=== PATIENT | female | born 1970 | race Caucasian/White ===

== ENCOUNTER 2021-09-04 08:45 | Emergency (ER) | payer BC, SELFPAY ==
--- NOTE | ~2021-09-04 | XR_ITS ---
EXAMINATION: XR HAND, RIGHT CLINICAL INFORMATION: Dog bite COMPARISON: None TECHNIQUE: PA, lateral, and oblique views of the right hand. FINDINGS: Bone alignment is normal. No fracture or dislocation is seen. Joint spaces are normal. There is a dressing overlying soft tissues adjacent to the first metacarpal bone. Soft tissues are otherwise unremarkable. XR/XR hand RT 2V IMPRESSION: No fracture seen.
[2021-09-04 09:58] VITALS: BP 107/44; PULSE 85; RESP 18; TEMP 36.6; O2SAT 98; BMI 24.7
--- NOTE | 2021-09-04 10:48 | ED_ITS ---
HPI - Animal Bite General Chief Complaint: Animal Bite Stated Complaint: Dog bite R hand Time Seen by Provider: 09/04/21 10:07 Source: patient Mode of arrival: ambulatory Limitations: no limitations History of Present Illness HPI narrative: 50-year-old female presents to the ER for evaluation of dog bite to her right hand. She was trying to break up a dog fight between her nieces pit bulls. She and her niece put their hands in the dog's mouth to try to break them up and they both sustained injuries to their hands and wrists. The patient reports significant pain to all of her digits of her right hand and is unable to move them at this point. She presents with her right hand wrapped up tight in gauze. She is right hand dominant. She is UTD on her TDAP. MD complaint: animal bite Onset (ago): minute(s) Animal: dog Description of animal: household pet Mechanism: bite and scratch Location - Extremities: right: hand Pain description: sharp and constant Severity scale (1-10): 7 Context: animals fighting Associated symptoms: numbness and headache Treatments prior to arrival: wound dressing(s) Related Data Patient tetanus UTD: Yes Previous Rx's Medication Instructions Recorded amoxicillin 875 mg-potassium 1 tab PO BID #20 tabs 09/04/21 clavulanate 125 mg tablet ibuprofen 600 mg tablet 600 mg PO Q8H PRN pain #20 tabs 09/04/21 Allergies Allergy/AdvReac Type Severity Reaction Status Date / Time Unable to Assess Allergy Unverified 09/04/21 11:43 Review of Systems Review of Systems: Constitutional: No Fever, No Chills ENT/Mouth: No sore throat, No Rhinorrhea, No Swallowing Difficulty Cardiovascular: No Chest Pain, No SOB, No Orthopnea, No Edema Respiratory: No Cough, No Sputum, No Wheezing, No dyspnea Gastrointestinal: + Nausea, No Vomiting, No Diarrhea, No abdominal Pain Musculoskeletal: + joint pain, No Myalgias Skin: + Skin Lesions, No rash Neuro: + Weakness, No Numbness, + Dizziness, + Headache Psych: + Anxiety/Panic, No Depression Heme/Lymph: + Bruising, No Lymphadenopathy PMFSH Social History Social History Advance Directives: Yes Advance Directives Information Provided: No Advance Directives on File: No Physical Exam ED Vital Signs: Vital Signs - 24 hr 07/11/22 09:58 Temperature 98 F Pulse Rate 85 Respiratory Rate 18 Blood Pressure 107/44 L Pulse Oximetry 98 Oxygen Delivery Method Room Air BMI result Body Mass Index 24.7 Appearance: Alert. Oriented X3. Anxious, pacing HEENT: normal inspection CVS: Normal heart rate and rhythm. Pulses normal. Respiratory: No respiratory distress. Skin: Skin warm and dry. Normal skin color. Normal skin turgor. No rashes. Extremities: dorsal aspect of the right hand with multiple tiny superficial abrasions and scrapes with a 3cm deep laceration to the hypothenar area. normal ROM of all digits including adduction and abduction of the fingers. decreased sensation of the 1st digit and 2nd digit on the dorsal side. 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 cap refill <3 sec, 2+ radial pulse Neuro: Oriented X 3. No motor deficit. No sensory deficit. Course Course Course Narrative: 50 yo female presents to the ER with right hand wounds from a dog bite. Multiple superficial abrasions with one 3cm lac to the hypothenar area amenable to suture repair. Tendon function intact. XR is pending. Pt extremely anxious. Reevaluation(s) Reevaluation #1: X-rays negative for any acute fractures. Wounds were extensively cleansed and irrigated with a combination of saline and hydrogen peroxide solution. Also use Betadine as an antiseptic. Wound was closed with 3 sutures with adequate wound approximation. Patient will be started on prophylactic Augmentin to prevent infection. She was encourage follow-up with Dr. Siddiqui given her reported numbness or decreased sensation in her 2nd and 3rd digits. She has normal range of motion with no evidence of tendon rupture. At this time she is stable for discharge home with oral antibiotics, pain control and outpatient follow-up. Patient agrees with plan and expressed understanding of wound care instructions and need for follow-up. Procedures Laceration Laceration 1: Site: hand Side (If applicable): right Size (cm): 3 Description: linear and contaminated Depth: simple, single layer Local Anesthetic: lidocaine 1% Amount of anesthesia used (mL): 3 Pre-repair: wound explored, irrigated extensively and deep structures intact Skin layer closed with: vicryl Size (cm): 5-0 Number of sutures: 3 Technique: simple, interrupted Discharge Plan Discharge Clinical Impression: Dog bite Patient Disposition: Home, Self-Care Instructions: Animal Bite (ED) Additional Instructions: Your x-ray today did not show any broken bones. You will need your stitches out in 7 days. See you doctor for this or come back to the ER and we will remove them. Do not get wet for 24 hours, after that you can briefly wash with soap and water then pat dry. Use bacitracin 1x per day. Keep wound clean and covered. Allow open to air for a few hours per day to allow scabbing to form. Do not submerge in water, no swimming. Recommend following with hand specialist, name & number below. If you develop signs of infection including increased pain, swelling, redness or drainage of pus come back to the ER for further evaluation. Prescriptions: New amoxicillin-pot clavulanate 875-125 mg tablet 1 tab PO BID Qty: 20 0RF ibuprofen 600 mg tablet 600 mg PO Q8H PRN (Reason: pain) Qty: 20 0RF Referrals: Ally Siddiqui MD [Physician] - (Dog bite to the right hand with digit numbness) Stand Alone Forms: Work/School Release Interventions: ED Discharge Assessment Last Done: 09/04/21 12:25 Discharge Date/Time: 09/04/21 12:26
[2021-09-04] MEDS: Ibuprofen 600 MG TABLET PO (12:11)
[2021-09-04] MEDS: Acetaminophen 325 MG TABLET 650 MG PO (12:11)
== END 2021-09-04 12:26 | disposition home or self-care (01) ==
PROVIDERS: Emergency Provider Student in an Organized Health Care Education/Training Program; PCP Internal Medicine
DX: S60.571A Other superficial bite of hand of right hand, initial encounter (principal); R20.0 Anesthesia of skin; R51.9 Headache, unspecified; W54.0XXA Bitten by dog, initial encounter; Y93.9 Activity, unspecified; Y92.009 Unspecified place in unspecified non-institutional (private) residence as the place of occurrence of the external cause; Y99.9 Unspecified external cause status; Z79.899 Other long term (current) drug therapy
CPT/HCPCS: 12042; 73120; 99283